=== PATIENT | female | born 1940 | race Caucasian/White ===

== ENCOUNTER 2018-03-13 12:26 | Outpatient (REF) | payer MEDICARE, SELFPAY ==
[2018-03-13 21:11] LABS: ALT 32 U/L (12-78); Anion Gap 7.1 mmol/L (3-11); BUN 24 mg/dL (7-18); CO2 31.9 mmol/L (21.0-32.0); Calcium 9.5 mg/dL (8.5-10.1); Chloride 104 mmol/L (98-107); Glucose 95 mg/dL (70-100); LDL CHOLESTEROL 88 mg/dL (<100); Potassium 4.5 mmol/L (3.5-5.1); Sodium 143 mmol/L (136-145)
== END 2018-03-13 12:46 ==
LOC: NCHCN 12:26
PROVIDERS: PCP Internal Medicine; Visit Provider Internal Medicine
DX: R73.09 Other abnormal glucose (principal); I87.2 Venous insufficiency (chronic) (peripheral); I10 Essential (primary) hypertension; E66.9 Obesity, unspecified
CPT/HCPCS: 80048; 83721; 84460

== ENCOUNTER 2019-01-23 12:23 | Outpatient (REF) | payer MEDICARE, SELFPAY ==
[2019-01-23 19:36] LABS: Hemoglobin A1C 6.2 % (4.5-6.2)
[2019-01-23 19:47] LABS: Anion Gap 6.2 mmol/L (3-11); BUN 29 mg/dL (7-18); CO2 30.8 mmol/L (21.0-32.0); CREATININE 1.28 mg/dL (0.55-1.02); Calcium 8.9 mg/dL (8.5-10.1); Chloride 104 mmol/L (98-107); Estimated GFR 40.54 (mL/min/1.73m2); Glucose 89 mg/dL (70-100); Potassium 4.3 mmol/L (3.5-5.1); Sodium 141 mmol/L (136-145); TSH 1.53 uIU/mL (0.36-3.74); Vitamin B12 494 pg/mL (193-986)
== END 2019-01-23 12:43 ==
LOC: NCHCN 12:23
PROVIDERS: PCP Internal Medicine; Visit Provider Internal Medicine
DX: R73.09 Other abnormal glucose (principal); E66.9 Obesity, unspecified; G62.9 Polyneuropathy, unspecified; E78.5 Hyperlipidemia, unspecified
CPT/HCPCS: 80048; 82607; 83036; 84443

== ENCOUNTER 2019-08-25 11:28 | Outpatient (REF) | payer MEDICARE, SELFPAY ==
[2019-08-25 19:14] LABS: HCT 43.4 % (36.0-46.0); HGB 13.5 g/dL (12.0-15.5); Mean Corp. HGB Concentration 31.1 g/dL (32.0-36.0); Mean Corpuscular Hemoglobin 26.9 pg (27.0-33.0); Mean Corpuscular Volume 86.6 fL (80-95); Mean Platelet Volume 11.4 fL (8.0-11.0); Platelet Count 232 x1000/uL (130-400); RBC 5.01 m/cumm (4.00-5.20); RBC Distribution Width 13.8 % (11.7-14.6); White Blood Cell Count 7.86 k/cumm (4.4-10.8)
[2019-08-25 19:16] LABS: Anion Gap 3.8 mmol/L (3-11); BUN 18 mg/dL (7-18); CO2 30.2 mmol/L (21.0-32.0); CREATININE 0.88 mg/dL (0.55-1.02); Calcium 8.9 mg/dL (8.5-10.1); Chloride 106 mmol/L (98-107); Glucose 102 mg/dL (74-106); Potassium 4.9 mmol/L (3.5-5.1); Sodium 140 mmol/L (136-145)
[2019-08-25 20:54] LABS: ESR 61 mm/hr (0-30)
== END 2019-08-25 11:48 ==
LOC: NCHCN 11:28
PROVIDERS: PCP Internal Medicine; Visit Provider Internal Medicine
DX: I10 Essential (primary) hypertension (principal); R73.03 Prediabetes; M54.9 Dorsalgia, unspecified
CPT/HCPCS: 80048; 85027; 85652; 83036